=== PATIENT | male | born 1955 | race Hispanic/Latino ===

== ENCOUNTER 2017-10-20 15:02 | Inpatient (IN) | payer OTHER, MEDICAID ==
[2017-10-20 20:23] VITALS: BMI 24.7
[2017-10-20] MEDS ORDERED: Influenza Vaccine 60 mcg/0.5 mL SYR (4YR UP) IM ONE (20:23)
[2017-10-20] MEDS ORDERED: Pneumococcal 23-Valent Vaccine IM ONE (20:23)
[2017-10-21 06:24] LABS: BASO # 0.02 K/mm3 (0.0-2.0); BASO % 0.4 % (0.0-3.0); EOS # 0.3 (0.0-0.7); EOS % 5.3 % (1.5-5.0); GRAN # 2.51 (1.4-6.5); GRAN % 49.1 % (50.0-68.0); HEMOGLOBIN 13.1 g/dL (14.0-18.0); LYMPH # 1.7 (1.2-3.4); LYMPH % 33.3 % (22.0-35.0); MEAN CELL VOLUME 89.9 fl (80.0-105.0); MEAN CORPUSCULAR HEMOGLOBIN 29.3 pg (25.0-35.0); MEAN CORPUSCULAR HGB CONC 32.6 g/dl (31.0-37.0); MEAN PLATELET VOLUME 9.6 fl (7.0-11.0); MONO # 0.6 (0.1-0.6); MONO % 11.9 % (1.0-6.0); RBC 4.47 10^6/uL (3.5-6.1); RED CELL DISTRIBUTION WIDTH 13.8 % (11.5-14.5); WHITE BLOOD COUNT 5.1 10^3/ul (4.5-11.0)
[2017-10-21 06:51] LABS: ALB/GLOB RATIO 1.1 (1.1-1.8); ALBUMIN 3.3 g/dL (3.0-4.8); ALT/SGPT 37 U/L (7-56); AST/SGOT 33 U/L (17-59); BLOOD UREA NITROGEN 17 mg/dL (7-21); CALCIUM 8.8 mg/dL (8.4-10.5); GFR AFRICAN-AMERICAN > 60; GFR NON-AFRICAN AMERICAN > 60
[2017-10-21] MEDS: Silver Sulfadiazine 1% Cream (25 gm) TP SCH (09:52)
[2017-10-22] MEDS: Silver Sulfadiazine 1% Cream (25 gm) TP SCH (09:28)
[2017-10-23] MEDS: Silver Sulfadiazine 1% Cream (25 gm) TP SCH (11:27)
[2017-10-24] MEDS: Silver Sulfadiazine 1% Cream (25 gm) TP SCH (10:57)
[2017-10-25] MEDS: Silver Sulfadiazine 1% Cream (25 gm) TP SCH (09:35)
[2017-10-25 17:52] LABS: ALB/GLOB RATIO 1.1 (1.1-1.8); ALBUMIN 3.7 g/dL (3.0-4.8); ALT/SGPT 34 U/L (7-56); AST/SGOT 23 U/L (17-59); BLOOD UREA NITROGEN 25 mg/dL (7-21); CALCIUM 8.7 mg/dL (8.4-10.5); GFR AFRICAN-AMERICAN > 60; GFR NON-AFRICAN AMERICAN > 60
[2017-10-25 18:30] LABS: URINE BILIRUBIN NEGATIVE (NEGATIVE); URINE BLOOD SMALL (NEGATIVE); URINE GLUCOSE (UA) NEGATIVE (NEGATIVE); URINE LEUKOCYTE ESTERASE MODERATE Leu/uL (NEGATIVE); URINE NITRATE POSITIVE (NEGATIVE); URINE PROTEIN 30 mg/dL (<30 mg/dL); URINE UROBILINOGEN 0.2 E.U./dL (<1 E.U./dL)
[2017-10-25 18:33] LABS: URINE APPEARANCE CLEAR (CLEAR); URINE COLOR YELLOW (YELLOW)
[2017-10-25 19:45] LABS: URINE BACTERIA LARGE (NEG); URINE EPITHELIAL CELLS 0 - 2 /hpf (0-5); URINE WBC 25 - 30 /hpf (0-6)
[2017-10-25 20:20] LABS: BASO # 0.04 K/mm3 (0.0-2.0); BASO % 0.2 % (0.0-3.0); EOS % 0.2 % (1.5-5.0); GRAN # 13.57 (1.4-6.5); GRAN % 80.3 % (50.0-68.0); HEMOGLOBIN 13.6 g/dL (14.0-18.0); LYMPH # 1.2 (1.2-3.4); LYMPH % 6.9 % (22.0-35.0); MEAN CELL VOLUME 90.4 fl (80.0-105.0); MEAN CORPUSCULAR HEMOGLOBIN 29.7 pg (25.0-35.0); MEAN CORPUSCULAR HGB CONC 32.9 g/dl (31.0-37.0); MEAN PLATELET VOLUME 10.4 fl (7.0-11.0); MONO # 2.1 (0.1-0.6); MONO % 12.4 % (1.0-6.0); RBC 4.58 10^6/uL (3.5-6.1); RED CELL DISTRIBUTION WIDTH 14.4 % (11.5-14.5); WHITE BLOOD COUNT 16.9 10^3/ul (4.5-11.0)
[2017-10-26] MEDS: Silver Sulfadiazine 1% Cream (25 gm) TP SCH (10:07)
[2017-10-27 07:07] LABS: ALBUMIN 3.2 g/dL (3.0-4.8); ALT/SGPT 29 U/L (7-56); AST/SGOT 30 U/L (17-59); BLOOD UREA NITROGEN 17 mg/dL (7-21); CALCIUM 8.5 mg/dL (8.4-10.5); GFR AFRICAN-AMERICAN > 60; GFR NON-AFRICAN AMERICAN > 60
[2017-10-27 07:10] LABS: MEAN CELL VOLUME 89.2 fl (80.0-105.0); MEAN CORPUSCULAR HEMOGLOBIN 29.1 pg (25.0-35.0); MEAN CORPUSCULAR HGB CONC 32.7 g/dl (31.0-37.0); MEAN PLATELET VOLUME 9.7 fl (7.0-11.0); RBC 3.98 10^6/uL (3.5-6.1); RED CELL DISTRIBUTION WIDTH 14.3 % (11.5-14.5); WHITE BLOOD COUNT 9.2 10^3/ul (4.5-11.0)
[2017-10-27 07:24] LABS: HEMOGLOBIN 11.6 g/dL (14.0-18.0)
[2017-10-27] MEDS: Silver Sulfadiazine 1% Cream (25 gm) TP SCH (10:17)
[2017-10-27 13:32] VITALS: PULSE 82; RESP 18; O2SAT 96
[2017-10-27 17:30] VITALS: BP 116/74; TEMP 99.1
[2017-10-28] MEDS: Silver Sulfadiazine 1% Cream (25 gm) TP SCH (09:10)
== END 2017-10-28 10:15 | DRG 558 ==
LOC: TRCU 15:02
PROVIDERS: ADMIT Internal Medicine; ATTEND Internal Medicine
PROC: F07Z9FZ Gait Training/Functional Ambulation Treatment using Assistive, Adaptive, Supportive or Protective Equipment (ICD-10-PCS; principal; 2017-10-21)
PROC: F08Z4FZ Home Management Treatment using Assistive, Adaptive, Supportive or Protective Equipment (ICD-10-PCS; 2017-10-21)
DX: M62.82 Rhabdomyolysis (principal); N39.0 Urinary tract infection, site not specified; B96.20 Unspecified Escherichia coli [E. coli] as the cause of diseases classified elsewhere; Z87.820 Personal history of traumatic brain injury; Z91.81 History of falling; Z88.0 Allergy status to penicillin

== ENCOUNTER 2018-01-03 17:30 | Inpatient (IN) | payer MEDICARE, MEDICAID ==
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
[2018-01-03 18:09] VITALS: BMI 24.9
[2018-01-03 18:28] LABS: VENOUS BLOOD GAS BASE EXCESS 5.5 mmol/L (0.0-2.0); VENOUS BLOOD GAS PO2 25 mm/Hg (30-55); VENOUS BLOOD PH 7.37 (7.32-7.43)
[2018-01-03 18:31] LABS: BASO # 0.04 K/mm3 (0.0-2.0); BASO % 0.4 % (0.0-3.0); EOS # 0.2 (0.0-0.7); EOS % 2.3 % (1.5-5.0); GRAN # 6.02 (1.4-6.5); GRAN % 66.4 % (50.0-68.0); HEMOGLOBIN 15.3 g/dL (14.0-18.0); LYMPH % 21.8 % (22.0-35.0); MEAN CORPUSCULAR HEMOGLOBIN 29.3 pg (25.0-35.0); MEAN CORPUSCULAR HGB CONC 33.6 g/dl (31.0-37.0); MEAN PLATELET VOLUME 9.1 fl (7.0-11.0); MONO # 0.8 (0.1-0.6); MONO % 9.1 % (1.0-6.0); RBC 5.23 10^6/uL (3.5-6.1); WHITE BLOOD COUNT 9.1 10^3/ul (4.5-11.0)
[2018-01-03 18:37] LABS: ALB/GLOB RATIO 1.1 (1.1-1.8); ALBUMIN 4.2 g/dL (3.0-4.8); ALT/SGPT 38 U/L (7-56); AST/SGOT 35 U/L (17-59); BLOOD UREA NITROGEN 16 mg/dL (7-21); CALCIUM 10.3 mg/dL (8.4-10.5); GFR AFRICAN-AMERICAN > 60; GFR NON-AFRICAN AMERICAN > 60
[2018-01-03 18:39] LABS: INR 0.97 (0.93-1.08); PARTIAL THROMBOPLASTIN TIME 33.9 Seconds (25.1-36.5); PROTHROMBIN TIME 11.1 SECONDS (9.4-12.5)
[2018-01-03 18:39] LABS: PH,URINE 5.5 (4.7-8.0); URINE BILIRUBIN NEGATIVE (NEGATIVE); URINE BLOOD NEGATIVE (NEGATIVE); URINE GLUCOSE (UA) NEGATIVE (NEGATIVE); URINE LEUKOCYTE ESTERASE NEGATIVE Leu/uL (NEGATIVE); URINE PROTEIN TRACE mg/dL (<30 mg/dL); URINE UROBILINOGEN 0.2 E.U./dL (<1 E.U./dL)
[2018-01-03 18:43] LABS: URINE APPEARANCE CLEAR (CLEAR); URINE COLOR YELLOW (YELLOW)
[2018-01-03 18:49] LABS: TROPONIN I < 0.01 ng/mL
[2018-01-03 18:51] LABS: URINE BACTERIA MOD (NEG); URINE RBC NEGATIVE /hpf (0-2)
[2018-01-03 18:54] LABS: CK-MB 3.7 ng/mL (0.0-3.6)
[2018-01-03] MEDS ORDERED: Ciprofloxacin 400mg/200ml D5W 400 MG/200 ML BAG IV STA (19:20)
--- NOTE | 2018-01-03 21:08 | CT ---
EXAM: CT Head Without Intravenous Contrast CLINICAL HISTORY: 62 years old, male; Signs and symptoms; Weakness, facial TECHNIQUE: Axial computed tomography images of the head/brain without intravenous contrast. All CT scans at this facility use one or more dose reduction techniques, viz.: automated exposure control; ma/kV adjustment per patient size (including targeted exams where dose is matched to indication; i.e. head); or iterative reconstruction technique. Coronal and sagittal reformatted images were created and reviewed. COMPARISON: No relevant prior studies available. FINDINGS: Brain: Moderate atrophy. No intracranial hemorrhage. No mass. Few scattered foci of decreased attenuation within periventricular/subcortical white matter. Probable chronic lacunar infarct about RIGHT basal ganglia. No definite edema. Ventricles: No hydrocephalus. Bones/joints: No acute fracture. Soft tissues: Unremarkable. Vasculature: Minimal atherosclerotic disease of intracranial arteries. Sinuses: No acute sinusitis. Mastoid air cells: No mastoid effusion. Orbits: Unremarkable as visualized. IMPRESSION: 1. Nonspecific white matter changes. Acute infarction may be CT occult within first 24 hours. If a focal deficit persists, consider followup CT or MRI for further evaluation. 2. Incidental/non-acute findings are described above.
--- NOTE | 2018-01-03 21:40 | RAD ---
HISTORY: weakness COMPARISON: Comparison is made with 10/15/2017 FINDINGS: LUNGS: No evidence of new infiltrate or consolidation in the lungs. PLEURA: No significant pleural effusion identified, no pneumothorax apparent. CARDIOVASCULAR: Normal. OSSEOUS STRUCTURES: No significant abnormalities. VISUALIZED UPPER ABDOMEN: Normal. OTHER FINDINGS: None. IMPRESSION: No active disease.
[2018-01-04] MEDS: Multivitamin Therapeutic Tab PO SCH (10:08)
--- NOTE | 2018-01-04 11:05 | CARD ---
APPROVED REPORT EKG Measurement Heart [id number] <Conclusion> Normal sinus rhythm Artifact present Probably no change
[2018-01-05] MEDS: Multivitamin Therapeutic Tab PO SCH (09:23)
[2018-01-05 14:57] VITALS: RESP 20
[2018-01-06] MEDS: Multivitamin Therapeutic Tab PO SCH (10:40)
--- NOTE | 2018-01-06 13:00 | PN ---
DATE: 01/05/2018 The patient was seen and admitted by Dr. Lavon Long last weekend and now is seen this Thursday evening in room 578, bed 1. He is in bed, comfortable, in no acute distress. Apparently, admitted with urinary tract infection after what he reports is two days of generalized weakness becoming extreme. Symptoms now seem to be clinically improving. Labs are improving. He is in good spirits, taking p.o. well. Antibiotics, continue. I talked to him about the Transitional Care Unit for additional . Victor Manuel Long MD
[2018-01-06] MEDS ORDERED: Influenza Vaccine 60 mcg/0.5 mL SYR (4YR UP) IM ONE (15:15)
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
[2018-01-07 08:25] VITALS: BP 127/82; PULSE 68; TEMP 97.8; O2SAT 96
[2018-01-07] MEDS: Multivitamin Therapeutic Tab PO SCH (10:10)
--- NOTE | 2018-01-08 03:55 | PN ---
DATE: 01/07/2018 SUBJECTIVE: Patient is seen this morning in room 578, bed 1. He is comfortable and in good spirits, but having quite a bit of difficulty ambulating. Unfortunately, physical therapy recommended a longer course of therapy may be needed the patient is hoping for, he wanted to go to our TCU where he will be followed by physicians that know him, but instead the case management is looking at a subacute rehab out of town. Patient was disheartened, but understands there is not a lot of options given insurance requirements and hospital policy. Therefore, later today, he may be discharged to a subacute rehab slowly for additional physical therapy and conditioning. Victor Manuel Long MD
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
== END 2018-01-07 17:05 | DRG 690 ==
LOC: ED 17:30 → ERH 21:26 → 5RSO 23:08
PROVIDERS: ADMIT Internal Medicine; ATTEND Internal Medicine
DX: N39.0 Urinary tract infection, site not specified (principal); E11.9 Type 2 diabetes mellitus without complications; R26.2 Difficulty in walking, not elsewhere classified; R53.1 Weakness; Z87.820 Personal history of traumatic brain injury; Z88.0 Allergy status to penicillin; Z87.442 Personal history of urinary calculi; Z87.311 Personal history of (healed) other pathological fracture; Z87.81 Personal history of (healed) traumatic fracture